=== PATIENT | male | born 1950 | race Caucasian/White ===

== ENCOUNTER 2018-02-23 12:24 | Emergency (ER) | payer MEDICARE ==
[~2018-02-23] VITALS: Ht 182.9 cm; Wt 110.0 kg
[~2018-02-23 12:24] MED LIST: DILT120C49 PO; NEOMSUS OD; PROS5TAB2 PO; SINE50TA PO
[2018-02-23 12:38] VITALS: BP 113/56; PULSE 64; RESP 20; TEMP 97.5; O2SAT 91
[2018-02-23] MEDS ORDERED: GABA300C5 PO (12:38)
--- NOTE | 2018-02-23 12:54 | PD ---
HPI Chief Complaint: Syncope/Near-Syncope Time Seen by Provider: 12:30 Travel History International Travel<30 days: No Contact w/Intl Traveler<30days: No Traveled to known affect area: No History of Present Illness HPI 67-year-old male with a history of tremor and questionable Parkinson's disease presents emergency department via [facility] for syncopal episode that occurred just prior to arrival. Patient states that he was sitting in scientology when he started developing tunnel vision that was waxing and waning, then felt dizzy then passed out for approximately 5 minutes. States that he had one episode of nonbloody nonbilious vomiting and says he feels much better. [facility] states that he was initially hypotensive and bradycardic but this improved during transport. Blood sugar was also normal at the time. He denies fever, chills, chest pain, shortness of breath, abdominal pain, back pain. He says "he feels great now". Says this episode was similar to his previous syncopal episodes with the last episode several months ago. States his previous syncopal episode was after IV contrast says he found out that he was allergic at that time to this. Patient has a history of BCC status post excision of the right cheek and follows Dr. Simmons, oncologist regularly. He takes diltiazem, losartan, carbidopa levodopa daily. Patient denies cardiac or pulmonary medical issues. PFSH Past Medical History Heart Rhythm Problems: No Cancer: Yes (MELANOMA RIGHT CHEEK) Cardiac Catheterization: No Cardiovascular Problems: No High Cholesterol: No Congestive Heart Failure: No Diabetes: No Endocrine: No Genitourinary: No Hepatitis: No Hiatal Hernia: No Hypertension: Yes Immune Disorder: No Medical other: Yes (PARKINSONS DISEASE) Musculoskeletal: Yes (ARTHRITIS, LOW BACK PAIN) Neurologic: Yes (RIGHT FACIAL NUMBNESS (TRAUMA & SX)) Parkinson's Disease: Yes Psychiatric: No Reproductive: No Respiratory: No Immunizations Current: No Myocardial Infarction: No Thyroid Disease: No Past Surgical History Abdominal Surgery: No AICD: No Body Medical Devices: NONE Cardiac Surgery: No Coronary Artery Bypass Graft: No Ear Surgery: No Endocrine Surgery: No Eye Surgery: Yes (MULTI. RIGHT EYELID REPAIRS) Genitourinary Surgery: No Joint Replacement: No Oral Surgery: No Pacemaker: No Thoracic Surgery: No Other Surgery: Yes (FACIAL SURGERY S/P A/A/, STOMACH TUMORS X2 BEGNIN TUMORS) Social History Alcohol Use: No Tobacco Use: No Substance Use: No Allergies-Medications (Allergen,Severity, Reaction): Coded Allergies: Sulfa (Sulfonamide Antibiotics) (Unverified Allergy, Severe, 07/09/17) SOB, REDNESS HANDS AND FEET diatrizoate meglumine (Unverified Allergy, Severe, ANAPHYLAXIS, 07/09/17) gadobenic acid (Unverified Allergy, Severe, ANAPHYLAXIS, 07/09/17) gadodiamide (Unverified Allergy, Severe, ANAPHYLAXIS, 07/09/17) gadoteridol (Unverified Allergy, Severe, ANAPHYLAXIS, 07/09/17) iodixanol (Unverified Allergy, Severe, ANAPHYLAXIS, 07/09/17) iohexol (Unverified Allergy, Severe, ANAPHYLAXIS, 07/09/17) penicillin G (Unverified Allergy, Severe, 07/09/17) n/v Reported Meds & Prescriptions Reported Meds & Active Scripts Active Reported Gabapentin 300 Mg Cap 300 Mg PO BID Cortisporin Ophthalmic Suspension (Neomycin/Polymyxin/Hydrocortisone) 7.5 Ml Susp 1 Drop OD DAILY PRN 10 Days FOR 10 DAYS Sinemet Cr 50/200 (Carbidopa/Levodopa) 50 Mg-200 Mg Tabcr 2 Tabcr PO TID Proscar (Finasteride) 5 Mg Tab 5 Mg PO DAILY Diltiazem Cd 120 mg 120 Mg Cap 120 Mg PO BID Review of Systems Except as stated in HPI: all other systems reviewed are Neg Physical Exam Narrative GENERAL: Well-developed well-nourished in no apparent distress SKIN: Focused skin assessment warm/dry. HEAD: Atraumatic. Normocephalic. EYES: Pupils equal and round. No scleral icterus. Scleral injection present, notable chronic deformities to the face resulting in incomplete closing of the eyelids ENT: No nasal bleeding or discharge. Mucous membranes pink and moist. NECK: Trachea midline. No JVD. No midline tenderness CARDIOVASCULAR: Regular rate and rhythm. No murmur appreciated. RESPIRATORY: No accessory muscle use. Clear to auscultation. Breath sounds equal bilaterally. GASTROINTESTINAL: Abdomen soft, non-tender, nondistended. Hepatic and splenic margins not palpable. MUSCULOSKELETAL: No obvious deformities. No clubbing. No cyanosis. No edema. NEUROLOGICAL: Awake and alert. No obvious cranial nerve deficits. Motor grossly within normal limits. Normal speech. No pronator drift PSYCHIATRIC: Appropriate mood and affect; insight and judgment normal. Data Data Last Documented VS Vital Signs Date Time Temp Pulse Resp B/P (MAP) Pulse Ox O2 Delivery O2 Flow Rate FiO2 02/23/18 12:38 97.5 64 20 113/56 (75) 91 Room Air MDM Medical Decision Making Medical Screen Exam Complete: Yes Emergency Medical Condition: Yes Differential Diagnosis Syncope, Narrative Course 67-year-old male presents emergency department via [facility] after syncopal episode that occurred just prior to arrival the patient was in scientology today. As I was evaluating the patient, the entered the room and started to explain to me how frustrated she was and how reluctant she was to have any tests or evaluations done today. Says that she is followed multiple specialists to evaluate for his syncopal episodes and she is convinced that his gabapentin is the cause of this syncopal episode today. Says that he increased his dose to 3 gabapentin's last night into this morning and the is insistent that he has an allergy to this medication as a result of the syncopal episode. and state that he has had multiple CAT scans and MRIs of the brain which is the cause of his previous syncopal episode. No labs or imaging studies were ordered as patient and refused them. I reiterated my concerns for the patient's condition multiple times throughout their visit in the ER today. The was insistent on having medical information in our EMR today however, I explained her that the [facility] system and our EMR do not communicate. It would be required to obtain records from that hospital. I explained that even if I did obtain records, today was a new syncopal episode and required a workup to ensure no acute process. I explained every single test that I wanted to perform on the patient along with the reasons why and they still refused. I explained my concern for the SaO2 abnormality. Again they refused treatment or evaluation. Patient will leave AMA today. I explained that they may change the mind at any point today. I recommended that if there concern was whether or not we had records that they should follow-up with [facility]. I recommended they call their specialists today. Advised that if any symptoms persists or patient felt worse return to the emergency department immediately. They state understanding and will comply. AMA: The risks of leaving against medical advice without further evaluation treatment were discussed with the patient. These risks include cardiac dysfunction, cardiac dysrhythmia, possible heart attack, possible stroke or . The patient indicated understanding of these risks and appeared to have the capacity to make this decision. Diagnosis Primary Impression: Syncope Qualified Codes: R55 - Syncope and collapse Referrals: Gavin Feldman MD Neurologist Additional Instructions: Follow-up with your primary care physician as soon as possible. Consider follow-up with cardiology and neurology for evaluation of her syncopal episodes. You may change your mind at any point to return to the hospital for further evaluation. If your symptoms persist or worsen return to the emergency department immediately. Disposition: 07 AGAINST MEDICAL ADVICE Condition: Stable Erika Block Feb 23, 2018 12:54
== END 2018-02-23 15:42 | disposition left against medical advice (07) ==
LOC: NEPC 12:24
DX: R55 Syncope and collapse (principal); R42 Dizziness and giddiness; G20 Parkinson's disease; I10 Essential (primary) hypertension; M19.90 Unspecified osteoarthritis, unspecified site; Z85.820 Personal history of malignant melanoma of skin; Z79.899 Other long term (current) drug therapy; Z88.2 Allergy status to sulfonamides; Z88.0 Allergy status to penicillin
CPT/HCPCS: 99283